=== PATIENT | female | born 1985 | race Two or more races ===

== ENCOUNTER 2016-06-04 19:29 | Emergency (ER) | payer MEDICAID ==
[~2016-06-04] VITALS: Ht 167.6 cm; Wt 90.7 kg
[2016-06-04 19:33] VITALS: BP 142/92
[2016-06-04 20:07] LABS: Basophils # (auto) 0 uL; Basophils % (auto) 0.4 % (0.0-2.0); Eosinophils # (auto) 0.1 uL; Eosinophils % (auto) 1.4 % (0.0-7.0); Hematocrit 39.1 % (36.0-46.0); Hemoglobin 12.8 g/dL (12.2-16.2); Lymphocytes # (auto) 2.5 uL; Lymphocytes % (auto) 31.1 % (10.0-50.0); Mean Corpuscular Hemoglobin 27.6 pg (28.0-32.0); Mean Corpuscular Hgb Conc. 32.6 g/dL (32.0-36.0); Mean Corpuscular Volume 84.4 fL (80.0-100.0); Mean Platelet Volume 10.7 fL (7.4-10.4); Monocytes # (auto) 0.4 uL; Neutrophils # (auto) 5.1 uL; Neutrophils % (auto) 62.1 % (37.0-80.0); Platelet Count (auto) 224 10^3/uL (140-450); Red Cell Distribution Width 17.1 % (11.6-16.0); White Blood Cell 8.2 10^3/uL (4.4-10.8)
[2016-06-04 20:19] LABS: Albumin 3.8 g/dL (3.4-5.0); BUN/Creatinine Ratio 16.9; Calcium 8.8 mg/dL (8.5-10.1); Potassium 4.2 mmol/L (3.5-5.1)
[2016-06-04 20:22] LABS: Bilirubin, Total 0.5 mg/dL (0.2-1.0); Total Protein 7.8 g/dL (6.4-8.2)
== END 2016-06-04 23:45 | disposition left against medical advice (07) ==
LOC: EDBD 19:29 → ER 19:35
DX: G43.909 Migraine, unspecified, not intractable, without status migrainosus (principal); R11.2 Nausea with vomiting, unspecified; Z53.21 Procedure and treatment not carried out due to patient leaving prior to being seen by health care provider
CPT/HCPCS: 36415; 70450; 80053; 85025